=== PATIENT | male | born 1945 | race Caucasian/White ===

== ENCOUNTER → 2022-01-08 | Outpatient (CLI) | payer MEDICARE, SELFPAY ==
--- NOTE | 2022-01-08 06:44 | ECHOD_ITS ---
Version 2 Reason For Study: Chest Pain Procedure This was a 2D Doppler, Color Flow transthoracic echocardiogram. Exam performed in department. Left Ventricle The left ventricle is normal in size, function, and thickness. The left ventricular ejection fraction is 65 %. Normal diastololic function. Right Ventricle Normal right ventricle. Atria The left and right atria are normal. Can not rule out tiny PFO. Mitral Valve Mild (1+) mitral valve insufficiency. Tricuspid Valve Normal tricuspid valve. Unable to estimate RV systolic pressure due to inadequate jet, pulmonary artery pressure probably normal. Aortic Valve Normal aortic valve. Trivial aortic valve insufficiency. Pulmonic Valve The pulmonic valve is not well visualized. Great Vessels Normal aortic root. Pericardium/Pleural No pericardial effusion. Medication 20 gauge I.V. with prn adaptor inserted into right arm. Performed a rapid injection of agitated mix of 9 cc saline and 1cc air to assess for atrial septal defect. MMode/2D Measurements & Calculations LVIDd: 5.5 cm IVSd: 1.2 cm Ao root diam: 3.4 cm LVIDs: 3.5 cm LVPWd: 1.1 cm LA dimension: 4.8 cm FS: 35.8 % LAV(MOD-bp): 66.4 ml LVAd ap4: 34.2 cm2 SV(MOD-sp4): 77.7 ml LAV(MOD-bp) Indexed: 32.8 ml/m2 LVLd ap4: 9.0 cm LAV(MOD-sp2): 76.8 ml EDV(MOD-sp4): 107.4 ml LAV(MOD-sp4): 56.8 ml EDV(sp4-el): 110.9 ml LVAs ap4: 15.8 cm2 LVLs ap4: 7.0 cm ESV(MOD-sp4): 29.8 ml ESV(sp4-el): 30.6 ml EF(MOD-sp4): 72.3 % EF(sp4-el): 72.4 % SV(sp4-el): 80.3 ml LA A4 area: 19.9 cm2 RA A4 area: 19.5 cm2 Time Measurements MV dec time: 0.24 sec Doppler Measurements & Calculations MV E max malik: 72.3 cm/sec Lat Peak E' Malik: 10.2 cm/sec Med Peak E' Malik: 9.3 cm/sec MV A max malik: 80.5 cm/sec E/E' lat: 7.1 E/E' med: 7.8 MV E/A: 0.90 MV V2 max: 88.8 cm/sec MV P1/2t max malik: 66.3 cm/sec Ao V2 max: 139.0 cm/sec MV max P.2 mmHg MV P1/2t: 73.6 msec Ao max P.7 mmHg MV V2 mean: 40.8 cm/sec Ao V2 mean: 93.7 cm/sec MV mean P.80 mmHg MV dec slope: 264.0 cm/sec2 Ao mean P.1 mmHg MV V2 VTI: 30.6 cm MVA(P1/2t): 3.0 cm2 Ao V2 VTI: 37.7 cm LV V1 max: 99.7 cm/sec MR max malik: 380.2 cm/sec PA V2 max: 96.5 cm/sec LV V1 max P.0 mmHg MR max P.8 mmHg LV V1 mean P.1 mmHg LV V1 mean: 67.5 cm/sec LV V1 VTI: 25.6 cm PI end-d malik: 85.4 cm/sec TR max malik: 222.6 cm/sec TR max P.8 mmHg ECHO/Echo Complete Interpretation Summary The left ventricular ejection fraction is 65 %. Can not rule out tiny PFO Ordering Physician: Josef Sosa Referring Physician: Xuan Queen Performed By: Gregory Carroll RCS
== END | disposition home or self-care (01) ==
PROVIDERS: PCP Internal Medicine; Referring Provider Internal Medicine Cardiovascular Disease; Visit Provider Internal Medicine Cardiovascular Disease
DX: R07.9 Chest pain, unspecified (principal)
CPT/HCPCS: 78452; 93017; 93306; A9500; A4216; J2785